=== PATIENT | female | born 1990 | race Two or more races ===

== ENCOUNTER 2017-08-05 01:19 | Emergency (ER) | payer OTHER ==
[~2017-08-05] VITALS: Ht 165.1 cm; Wt 62.6 kg
[2017-08-05] MEDS ORDERED: CLONAZEPAM1 MG (01:25)
[2017-08-05] MEDS ORDERED: PHENAGIL CH TA1 EACH PO (06:06)
== END 2017-08-05 06:14 | disposition home or self-care (01) ==
LOC: ER 01:19
DX: J06.9 Acute upper respiratory infection, unspecified (principal)

== ENCOUNTER 2017-12-07 09:26 | Outpatient (CLI) | payer OTHER ==
[~2017-12-07 09:26] MED LIST: CLONAZEPAM1 MG; PHENAGIL CH TA1 EACH PO
== END 2017-12-07 09:29 | disposition home or self-care (01) ==
LOC: SONOGRAMA 09:26
DX: N64.0 Fissure and fistula of nipple (principal)

== ENCOUNTER 2017-12-13 11:00 | Outpatient (CLI) | payer OTHER | END 2017-12-13 11:10 | disposition home or self-care (01) | LOC: RAD 501 11:00 | DX: J01.81 Other acute recurrent sinusitis (principal) ==

== ENCOUNTER 2018-07-15 09:25 | Outpatient (CLI) | payer OTHER | END 2018-07-15 09:30 | disposition home or self-care (01) | LOC: SONOGRAMA 09:25 | DX: K80.00 Calculus of gallbladder with acute cholecystitis without obstruction (principal) ==

== ENCOUNTER 2018-10-10 07:52 | Outpatient (CLI) | payer OTHER | END 2018-10-10 07:57 | disposition home or self-care (01) | LOC: RAD 07:52 | DX: M41.80 Other forms of scoliosis, site unspecified (principal) ==